=== PATIENT | male | born 1975 | race Caucasian/White ===

== ENCOUNTER 2021-03-26 16:02 | Emergency (ER) | payer OTHER, MEDICAID ==
[~2021-03-26] VITALS: Ht 167.6 cm; Wt 87.8 kg
[2021-03-26 16:15] VITALS: BP 121/81
--- NOTE | 2021-03-26 16:24 | NUR ---
Patient transferred to bed 7 via wheelchair by triage nurse. Caregiver at bedside.
--- NOTE | 2021-03-26 16:30 | NUR ---
NIURKA Galvez is evaluating the patient at bedside.
--- NOTE | 2021-03-26 16:55 | NUR ---
45 Y/O M BIB [employer] FROM [facility], C/O R FOOT PAIN RADIATING TO ANKLE AND CALVES. PT BASELINE ABLE TO AMBULATE WITHOUT ASSISTANCE. [employer] STATES HE CAN AMBULATE, BUT "HE LOOKS VERY OFF BALANCE". PAIN STARTED 1 WEEK AGO, GETS WORSE IN THE MORNING. PERRLA, FLEX AND EXTENDS ALL EXTREMTIES WITH APPROPRIATE STRENGTH. PMH: DM2, HTN NKA MED: TRAZADONE, VITAMIN D, METFORMIN
[2021-03-26] MEDS ORDERED: NAPR-54 PO (17:12)
[2021-03-26 17:28] VITALS: BP 121/81
--- NOTE | 2021-03-26 17:28 | NUR ---
Patient discharged with v/s stable. Written and verbal after care instructions given and explained. Patient alert, oriented and verbalized understanding of instructions. Ambulatory with by caregiver. All questions addressed prior to discharge. ID band removed. Patient advised to follow up with PMD. Rx of NAPROXEN given. Patient educated on indication of medication including possible reaction and side effects. Opportunity to ask questions provided and answered.
== END 2021-03-26 17:28 | disposition home or self-care (01) ==
LOC: MED 16:02
DX: M79.671 Pain in right foot (principal); I10 Essential (primary) hypertension; E11.9 Type 2 diabetes mellitus without complications
CPT/HCPCS: 73630; 99283